=== PATIENT | male | born 1995 | race African-American/Black ===

== ENCOUNTER 2019-03-13 14:26 | Emergency (ER) | payer OTHER, SELFPAY ==
[2019-03-13 14:33] VITALS: BP 131/67; PULSE 63; RESP 18; TEMP 36.5; O2SAT 100; BMI 25.7
[2019-03-13 15:18] LABS: Add Manual Diff / Slide Review NO; Basophils Absolute Auto 0 /uL (0-100); Basophils Percent Auto 0.8 % (0-2); Eosinophils Absolute Auto 200 /uL (0-450); Eosinophils Percent Auto 4.4 % (2-4); Hematocrit 46.2 % (41-53); Lymphocytes Absolute Auto 1900 /uL (1100-4500); Lymphocytes Percent Auto 44.1 % (25-40); Mean Corpuscular HGB Conc 34.6 % (30-36); Mean Corpuscular Hemoglobin 33.3 PG (26-34); Mean Corpuscular Volume 96.2 fL (80-100); Monocytes Absolute Auto 700 /uL (0-900); Monocytes Percent Auto 16.6 % (3-14); Neutrophils Absolute Auto 1500 /uL (1500-7000); Neutrophils Percent Auto 34.1 % (50-75); Platelet Count 195 X10^3/uL (150-400); Red Cell Distribution Width 13.1 % (11.6-14.8); White Blood Cell Count 4.3 X10^3/uL (4.5-11.0)
[2019-03-13 15:26] LABS: INR 1.1 (0.9-1.3); Prothrombin Time 12.9 SECONDS (10.1-12.7)
[2019-03-13 15:29] LABS: PTT Partial Thromboplastin Tim 41 SECONDS (26.4-36.2)
[2019-03-13 15:36] LABS: Alanine Aminotransferase 40 IU/L (<50); Albumin 4.4 g/dL (3.5-5.0); Albumin Globulin Ratio 1.5 (1.0-2.8); Alkaline Phosphatase 77 U/L (38-126); Amylase 57 U/L (30-110); Aspartate Aminotransferase 45 IU/L (17-59); BUN Creatinine Ratio 10.7 (6-22); Bilirubin Total 0.7 mg/dL (0.2-1.3); Blood Urea Nitrogen 15 mg/dL (9-20); Calcium 9.5 mg/dL (8.4-10.2); Carbon Dioxide 29 mmol/L (22-32); Chloride 103 mmol/L (98-107); Estimated Glomerular Filt Rate > 60.0 mL/min (>60); Glucose 101 mg/dL (70-100); HEMOLYSIS 26 (0-50); Lipase 59 U/L (23-300); Potassium 4.1 mmol/L (3.4-5.1); Sodium 140 mmol/L (137-145); Total Protein 7.4 g/dL (6.3-8.2)
[2019-03-13] MEDS: SODIUM CHLORIDE 0.9% 1,000 ML 1000 ML IV (16:19)
[2019-03-13 17:32] LABS: Influenza A - CEPHEID Flu A NEGATIVE (NEGATIVE); Influenza B - CEPHEID Flu B NEGATIVE (NEGATIVE)
[2019-03-13] MEDS: ONDANSETRON 4 MG/2 ML INJ IV (18:17)
[2019-03-13] MEDS: ONDANSETRON 4 MG ODT PREPACK 1 BOTTLE MISC (18:18)
[2019-03-13 18:30] VITALS: PULSE 67; RESP 18; O2SAT 98
--- NOTE | 2019-03-13 19:13 | ED.ABDPAIN ---
HPI - Abdominal Pain <NORIS Cason - Last Filed: 03/13/19 19:18> General Chief Complaint: Abdominal Pain Stated Complaint: lower abdominable pain 3x days Time Seen by Provider: 03/13/19 15:00 Source: patient Mode of arrival: Ambulatory Limitations: no limitations History of Present Illness HPI narrative: The patient is a 23-year-old male nonsmoker who denies medical history presents with his girlfriend for chief complaint of abdominal pain for the past 3 days. He states he has had some loose stools, but no diarrhea. No nausea or vomiting. Has not taken anything to feel better. Denies any fevers chest pain shortness of breath. He states a few days ago he had the sweats.He denies any dysuria urgency frequency or testicular pain at this point time. He is concerned as he is supposed to go on leave tomorrow morning. Has not followed up with primary care provider. Related Data Previous Rx's Medication Instructions Recorded ondansetron 4 mg PO Q6H PRN #14 tab 03/13/19 Review of Systems <NORIS Cason - Last Filed: 03/13/19 19:18> Review of Systems Narrative: GENERAL: Denies chills, fatigue, malaise, fever, sweats. HEENT: Denies sinus pain, ear pain, sore throat, difficulty swallowing, dizziness. RESPIRATORY: Denies dyspnea, cough, wheezing, hemoptysis, sputum. CARDIOVASCULAR: Denies chest pain, palpitations, orthopnea, edema, GASTROINTESTINAL: See HPI : Denies dysuria, frequency, incontinence, hematuria, urinary retention. MUSCULOSKELETAL: denies weakness, joint pain, or bony pain SKIN: Denies rash, skin lesions, or other NEUROLOGIC: Denies weakness, headache, numbness, change in speech, confusion, seizures, incoordination. PSYCHIATRIC: No concerning psychosocial issues. 12 point review of systems is negative except for those stated above Patient History <NORIS Cason - Last Filed: 03/13/19 19:18> Social History Smoking Status: Never smoker Smoking Status: Never smoker alcohol intake frequency: a few times a month Substance Use Type: does not use Exam <NORIS Csaon - Last Filed: 03/13/19 19:18> Narrative Exam Narrative: GENERAL: This is a well-nourished, well-developed patient, in no acute distress HEAD: Atraumatic. Normocephalic. No temporal or scalp tenderness. EYES: Pupils equal round and reactive. Extraocular motions intact. No scleral icterus. No injection or drainage. ENT: Nose without bleeding, purulent drainage or septal hematoma. Throat without erythema, tonsillar hypertrophy or exudate. Uvula midline. Airway patent. NECK: Trachea midline. No JVD or lymphadenopathy. Supple, nontender, no meningeal signs. CARDIOVASCULAR: Regular rate and rhythm without murmurs, gallops, or rubs. RESPIRATORY: Clear to auscultation. Breath sounds equal bilaterally. No wheezes, rales, or rhonchi. GASTROINTESTINAL: Abdomen soft, non-tender, nondistended. No hepato-splenomegaly, or palpable masses. No guarding. Active bowel sounds all 4 quadrants. No pain to palpation. Soft nonrigid abdomen EXTREMITIES: No clubbing, cyanosis, or edema. No joint tenderness, effusion, or edema noted. BACK: Nontender without deformity or crepitance. No flank tenderness. NEURO: AOx3. SKIN: No rash or erythema on visible Initial Vital Signs Initial Vital Signs: Vital Signs Temperature 97.7 F 03/13/19 14:33 Pulse Rate 63 03/13/19 14:33 Respiratory Rate 18 03/13/19 14:33 Blood Pressure 131/67 03/13/19 14:33 Pulse Oximetry 100 03/13/19 14:33 <Flori Castrejon MD - Last Filed: 03/14/19 07:21> Initial Vital Signs Initial Vital Signs: Vital Signs Temperature 97.7 F 03/13/19 14:33 Pulse Rate 63 03/13/19 14:33 Respiratory Rate 18 03/13/19 14:33 Blood Pressure 131/67 03/13/19 14:33 Pulse Oximetry 100 03/13/19 14:33 Course <NORIS Cason - Last Filed: 03/13/19 19:18> Orders Ordered: Discontinued Medications Sodium Chloride (Normal Saline 0.9%) 1,000 mls @ 1,000 mls/hr IV BOLUS ONE Stop: 03/13/19 16:47 Last Infusion: 03/13/19 17:26 Dose: 0 mls/hr Documented by: Infusion: 03/13/19 17:17 Dose: 1,000 mls/hr Documented by: Admin: 03/13/19 16:19 Dose: 1,000 mls/hr Documented by: INGRIDT Ondansetron HCl (Zofran) 4 mg IV NOW ONE Stop: 03/13/19 17:58 Last Admin: 03/13/19 18:17 Dose: 4 mg Documented by: INGRIDT Ondansetron HCl (Zofran Odt Prepack) 1 bottle MISC SEEINSTR ONE Stop: 03/13/19 18:11 Last Admin: 03/13/19 18:18 Dose: 1 bottle Documented by: JADE Vital Signs Vital signs: Vital Signs - 8 hr 03/13/19 14:33 03/13/19 18:30 Temperature 97.7 F Pulse Rate 63 67 Respiratory Rate 18 18 Blood Pressure 131/67 Pulse Oximetry 100 98 <Flori Castrejon MD - Last Filed: 03/14/19 07:21> Orders Ordered: Discontinued Medications Sodium Chloride (Normal Saline 0.9%) 1,000 mls @ 1,000 mls/hr IV BOLUS ONE Stop: 03/13/19 16:47 Last Infusion: 03/13/19 17:26 Dose: 0 mls/hr Documented by: Infusion: 03/13/19 17:17 Dose: 1,000 mls/hr Documented by: Admin: 03/13/19 16:19 Dose: 1,000 mls/hr Documented by: INGRIDT Ondansetron HCl (Zofran) 4 mg IV NOW ONE Stop: 03/13/19 17:58 Last Admin: 03/13/19 18:17 Dose: 4 mg Documented by: JADE Ondansetron HCl (Zofran Odt Prepack) 1 bottle MISC SEEINSTR ONE Stop: 03/13/19 18:11 Last Admin: 03/13/19 18:18 Dose: 1 bottle Documented by: JADE Vital Signs Vital signs: Vital Signs - 8 hr 03/13/19 14:33 03/13/19 18:30 Temperature 97.7 F Pulse Rate 63 67 Respiratory Rate 18 18 Blood Pressure 131/67 Pulse Oximetry 100 98 MDM - Abdominal Pain <NORIS Cason - Last Filed: 03/13/19 19:18> Lab Data Result diagrams: 03/13/19 15:09 03/13/19 15:09 Labs: Lab Results 03/13/19 03/13/19 03/13/19 Range/Units 15:09 15:09 15:09 WBC 4.3 L (4.5-11.0) X10^3/uL RBC 4.80 (4.5-5.9) X10^6/uL Hgb 16.0 (13.5-17.5) g/dL Hct 46.2 (41-53) % MCV 96.2 (80-100) fL MCH 33.3 (26-34) PG MCHC 34.6 (30-36) % RDW 13.1 (11.6-14.8) % Plt Count 195 (150-400) X10^3/uL Neut % (Auto) 34.1 L (50-75) % Lymph % (Auto) 44.1 H (25-40) % [place] % (Auto) 16.6 H (3-14) % Eos % (Auto) 4.4 H (2-4) % Baso % (Auto) 0.8 (0-2) % Neut # (Auto) 1500 (9975-7455) /uL Lymph # (Auto) 1900 (0972-3428) /uL [place] # (Auto) 700 (0-900) /uL Eos # (Auto) 200 (0-450) /uL Baso # (Auto) 0 (0-100) /uL PT 12.9 H (10.1-12.7) SECONDS INR 1.1 (0.9-1.3) APTT 41 H (26.4-36.2) SECONDS Sodium 140 (137-145) mmol/L Potassium 4.1 (3.4-5.1) mmol/L Chloride 103 (98-107) mmol/L Carbon Dioxide 29 (22-32) mmol/L BUN 15 (9-20) mg/dL Creatinine 1.40 H (0.66-1.25) mg/dL Estimated GFR > 60.0 (>60) mL/min BUN/Creatinine Ratio 10.7 (6-22) Glucose 101 H (70-100) mg/dL Calcium 9.5 (8.4-10.2) mg/dL Total Bilirubin 0.7 (0.2-1.3) mg/dL AST 45 (17-59) IU/L ALT 40 (<50) IU/L Alkaline Phosphatase 77 (38-126) U/L Total Protein 7.4 (6.3-8.2) g/dL Albumin 4.4 (3.5-5.0) g/dL Globulin 3.0 (1.7-4.1) g/dL Albumin/Globulin Ratio 1.5 (1.0-2.8) Amylase (30-110) U/L Lipase 59 (23-300) U/L Influenza A (RT-PCR) (NEGATIVE) Influenza B (RT-PCR) (NEGATIVE) 03/13/19 03/13/19 Range/Units 15:09 16:51 WBC (4.5-11.0) X10^3/uL RBC (4.5-5.9) X10^6/uL Hgb (13.5-17.5) g/dL Hct (41-53) % MCV (80-100) fL MCH (26-34) PG MCHC (30-36) % RDW (11.6-14.8) % Plt Count (150-400) X10^3/uL Neut % (Auto) (50-75) % Lymph % (Auto) (25-40) % [place] % (Auto) (3-14) % Eos % (Auto) (2-4) % Baso % (Auto) (0-2) % Neut # (Auto) (9558-4312) /uL Lymph # (Auto) (9776-2157) /uL [place] # (Auto) (0-900) /uL Eos # (Auto) (0-450) /uL Baso # (Auto) (0-100) /uL PT (10.1-12.7) SECONDS INR (0.9-1.3) APTT (26.4-36.2) SECONDS Sodium (137-145) mmol/L Potassium (3.4-5.1) mmol/L Chloride (98-107) mmol/L Carbon Dioxide (22-32) mmol/L BUN (9-20) mg/dL Creatinine (0.66-1.25) mg/dL Estimated GFR (>60) mL/min BUN/Creatinine Ratio (6-22) Glucose (70-100) mg/dL Calcium (8.4-10.2) mg/dL Total Bilirubin (0.2-1.3) mg/dL AST (17-59) IU/L ALT (<50) IU/L Alkaline Phosphatase (38-126) U/L Total Protein (6.3-8.2) g/dL Albumin (3.5-5.0) g/dL Globulin (1.7-4.1) g/dL Albumin/Globulin Ratio (1.0-2.8) Amylase 57 (30-110) U/L Lipase (23-300) U/L Influenza A (RT-PCR) Flu a negative (NEGATIVE) Influenza B (RT-PCR) Flu b negative (NEGATIVE) Point of care testing: Urine Dip Bedside Urine Glucose Negative Bedside Urine Bilirubin - Negative Bedside Urine Ketone - Negative Urine Specific [place] 1.015 Bedside Urine Occult Blood - Negative Bedside Urine pH 6.0 Bedside Urine Protein - Negative Bedside Urine Urobilinogen - Negative Bedside Urine Nitrite - Negative Bedside Urine Leukocytes - Negative Esterase MDM Narrative Medical decision making narrative: The patient is a 23-year-old male who presents with a chief complaint of diffuse lower abdominal pain and soft stools. He has no episodes of diarrhea over stool in the emergency department. He does not have an acute abdomen on exam, has no signs of systemic infection and is afebrile. Of note his lab work came back grossly normal, his creatinine is slightly elevated at 1.4, but his GFR is greater than 60 and his BUN is 15. The patient states that he has been drinking lots of energy drinks, pre workout protein powder. He states he has not been drinking water as water has been on safe his most recent location. I encouraged at length that he needs to push fluids of the non caffeinated variety he requested to go home after his lab work came back grossly normal. He has no acute findings on exam, grossly normal lab work, so I'm comfortable not ordering imaging at this point time. I encouraged him to follow up with primary care provider in the next few days and come back to the emergency department for any acute concerns such as abdominal pain with fever, inability keep down fluids etc. patient has no questions or concerns upon discharge and states understanding of return precautions as well as follow-up care. <Flori Castrejon MD - Last Filed: 03/14/19 07:21> Lab Data Labs: Lab Results 03/13/19 03/13/19 03/13/19 Range/Units 15:09 15:09 15:09 WBC 4.3 L (4.5-11.0) X10^3/uL RBC 4.80 (4.5-5.9) X10^6/uL Hgb 16.0 (13.5-17.5) g/dL Hct 46.2 (41-53) % MCV 96.2 (80-100) fL MCH 33.3 (26-34) PG MCHC 34.6 (30-36) % RDW 13.1 (11.6-14.8) % Plt Count 195 (150-400) X10^3/uL Neut % (Auto) 34.1 L (50-75) % Lymph % (Auto) 44.1 H (25-40) % [place] % (Auto) 16.6 H (3-14) % Eos % (Auto) 4.4 H (2-4) % Baso % (Auto) 0.8 (0-2) % Neut # (Auto) 1500 (9204-1660) /uL Lymph # (Auto) 1900 (5138-2659) /uL [place] # (Auto) 700 (0-900) /uL Eos # (Auto) 200 (0-450) /uL Baso # (Auto) 0 (0-100) /uL PT 12.9 H (10.1-12.7) SECONDS INR 1.1 (0.9-1.3) APTT 41 H (26.4-36.2) SECONDS Sodium 140 (137-145) mmol/L Potassium 4.1 (3.4-5.1) mmol/L Chloride 103 (98-107) mmol/L Carbon Dioxide 29 (22-32) mmol/L BUN 15 (9-20) mg/dL Creatinine 1.40 H (0.66-1.25) mg/dL Estimated GFR > 60.0 (>60) mL/min BUN/Creatinine Ratio 10.7 (6-22) Glucose 101 H (70-100) mg/dL Calcium 9.5 (8.4-10.2) mg/dL Total Bilirubin 0.7 (0.2-1.3) mg/dL AST 45 (17-59) IU/L ALT 40 (<50) IU/L Alkaline Phosphatase 77 (38-126) U/L Total Protein 7.4 (6.3-8.2) g/dL Albumin 4.4 (3.5-5.0) g/dL Globulin 3.0 (1.7-4.1) g/dL Albumin/Globulin Ratio 1.5 (1.0-2.8) Amylase (30-110) U/L Lipase 59 (23-300) U/L Influenza A (RT-PCR) (NEGATIVE) Influenza B (RT-PCR) (NEGATIVE) 03/13/19 03/13/19 Range/Units 15:09 16:51 WBC (4.5-11.0) X10^3/uL RBC (4.5-5.9) X10^6/uL Hgb (13.5-17.5) g/dL Hct (41-53) % MCV (80-100) fL MCH (26-34) PG MCHC (30-36) % RDW (11.6-14.8) % Plt Count (150-400) X10^3/uL Neut % (Auto) (50-75) % Lymph % (Auto) (25-40) % [place] % (Auto) (3-14) % Eos % (Auto) (2-4) % Baso % (Auto) (0-2) % Neut # (Auto) (0282-4188) /uL Lymph # (Auto) (4914-8948) /uL [place] # (Auto) (0-900) /uL Eos # (Auto) (0-450) /uL Baso # (Auto) (0-100) /uL PT (10.1-12.7) SECONDS INR (0.9-1.3) APTT (26.4-36.2) SECONDS Sodium (137-145) mmol/L Potassium (3.4-5.1) mmol/L Chloride (98-107) mmol/L Carbon Dioxide (22-32) mmol/L BUN (9-20) mg/dL Creatinine (0.66-1.25) mg/dL Estimated GFR (>60) mL/min BUN/Creatinine Ratio (6-22) Glucose (70-100) mg/dL Calcium (8.4-10.2) mg/dL Total Bilirubin (0.2-1.3) mg/dL AST (17-59) IU/L ALT (<50) IU/L Alkaline Phosphatase (38-126) U/L Total Protein (6.3-8.2) g/dL Albumin (3.5-5.0) g/dL Globulin (1.7-4.1) g/dL Albumin/Globulin Ratio (1.0-2.8) Amylase 57 (30-110) U/L Lipase (23-300) U/L Influenza A (RT-PCR) Flu a negative (NEGATIVE) Influenza B (RT-PCR) Flu b negative (NEGATIVE) Point of care testing: Urine Dip Bedside Urine Glucose Negative Bedside Urine Bilirubin - Negative Bedside Urine Ketone - Negative Urine Specific [place] 1.015 Bedside Urine Occult Blood - Negative Bedside Urine pH 6.0 Bedside Urine Protein - Negative Bedside Urine Urobilinogen - Negative Bedside Urine Nitrite - Negative Bedside Urine Leukocytes - Negative Esterase Discharge Plan Departure Patient Disposition: Home Clinical Impression: Abdominal pain Qualifiers: Abdominal location: generalized Qualified Code(s): R10.84 - Generalized abdominal pain Discharge Date/Time: 03/13/19 18:30 Instructions: DI for Abdominal Pain-Adult Activity Restrictions/Additional Instructions: Today your lab work was reassuring. Your urine does not show signs of infection. You should drink more water and your labs indicate potential for dehydration. Please eat a simple diet, avoid spicy, acidic fried, fatty foods and alcohol Please follow-up with primary care provider Please come back to emergency department for any acute concerns such as abdominal pain with fever, inability keep down fluids etc. Prescriptions: New ondansetron 4 mg tablet,disintegrating 4 mg PO Q6H PRN (Reason: nausea and vomiting) Qty: 14 RF: 0 Referrals: [employer] [facility] [Provider Group]
== END 2019-03-13 18:30 | disposition home or self-care (01) ==
PROVIDERS: Emergency Provider Nurse Practitioner Family
DX: R10.84 Generalized abdominal pain (principal); R79.89 Other specified abnormal findings of blood chemistry
CPT/HCPCS: 36415; 80053; 81003; 82150; 83690; 85025; 85610; 85730; 87502; 96361; 96374; 99283; 99284; J2405